=== PATIENT | male | born 1930 | race African-American/Black ===

== ENCOUNTER 2017-08-28 18:20 | Emergency (ER) | payer MEDICARE, OTHER ==
--- NOTE | 2017-08-28 18:26 | ER Document Report ---
ED General - General Stated Complaint: DIARRHEA Time Seen by Provider: 08/28/17 18:23 Notes: 87-year-old male with hypertension and dementia, possibly also A. fib although history is limited, presents with reports from the facility of diarrhea 3 times today, as well as diarrhea yesterday. Staff foul-smelling concern for C. difficile. Patient has no pain no vomiting and denies having diarrhea although he is demented and history is limited. - Related Data Allergies/Adverse Reactions: No Known Allergies Allergy (Verified 08/28/17 18:30) Past Medical History - Social History Smoking Status: Former Smoker Family History: Reviewed & Not Pertinent Review of Systems - Review of Systems Notes: PHYSICAL EXAMINATION General: No acute distress, well-nourished Head: Atraumatic, normocephalic ENT: Mouth normal, oropharynx moist, no exudates or tonsillar enlargement Eyes: Conjunctiva normal, pupils equal, lids normal Neck: No JVD, supple, no guarding CVS: Normal rate, regular rhythm, no murmurs Resp: No resp distress, equal and normal breath sounds bilaterally GI: Nondistended, soft, no tenderness to palpation, no rebound or guarding Ext: No deformities, no edema, normal range of motion in upper and lower ext Back: No CVA or midline TTP Skin: No rash, warm Lymphatic: No lymphadeopathy noted Neuro: Awake, alert. Face symmetric. GCS 15. -: Yes ROS unobtainable due to patient's medical condition Physical Exam - Vital signs Vitals: Temp Pulse Resp BP Pulse Ox 98.3 F 54 L 18 180/61 H 99 08/28/17 18:23 08/28/17 18:23 08/28/17 18:23 08/28/17 18:23 08/28/17 18:23 Course - Re-evaluation Re-evalutation: 08/28/17 18:26 87-year-old male with hypertension presents with astigmatic hypertension and reports of diarrhea. Abdominal exam is benign. Vital signs are normal. Will rule out C. difficile with a stool study although I do not believe he is dehydrated, or needs any other testing at this time. Doubt megacolon or other intra-abdominal complications of diarrhea. 08/28/17 20:10 This was not able to provide a stool sample in over 2 hours. He will be discharged back to his facility with instructions for outpatient C. difficile workup. I have discussed with the patient there likely diagnosis, aftercare plan, follow-up plans and my usual and customary return precautions. They verbalized understanding of this. - Vital Signs Vital signs: Temp Pulse Resp BP Pulse Ox 98.3 F 54 L 18 180/61 H 99 08/28/17 18:23 08/28/17 18:23 08/28/17 18:23 08/28/17 18:23 08/28/17 18:23 Discharge - Discharge Clinical Impression: Diarrhea Qualifiers: Diarrhea type: presumed infectious Qualified Code(s): A09 - Infectious gastroenteritis and colitis, unspecified Disposition: HOME, SELF-CARE Instructions: Diarrhea, Nonspecific ([facility]) Additional Instructions: Please obtain testing for Clostridium difficile as an outpatient. You were unable to provide a stool sample while in the ER.
[2017-08-29 02:56] VITALS: BP 159/47
== END 2017-08-29 03:15 | disposition home or self-care (01) ==
LOC: ER 18:20
DX: R19.7 Diarrhea, unspecified (principal); I10 Essential (primary) hypertension; F03.90 Unspecified dementia, unspecified severity, without behavioral disturbance, psychotic disturbance, mood disturbance, and anxiety; Z87.891 Personal history of nicotine dependence
CPT/HCPCS: 99285

== ENCOUNTER 2017-09-01 08:46 | Emergency (ER) | payer OTHER, MEDICARE ==
[2017-09-01 09:50] LABS: ABSOLUTE EOSINOPHILS # (AUTO) 0.1 10^3/uL (0.0-0.6); ABSOLUTE LYMPHOCYTES (AUTO) 0.7 10^3/uL (0.5-4.7); ABSOLUTE MONOCYTES (AUTO) 0.5 10^3/uL (0.1-1.4); ABSOLUTE NEUT (AUTO) 5.3 10^3/uL (1.7-8.2); BASOPHILS % (AUTO) 0.3 % (0-2); EOSINOPHILS % (AUTO) 1.1 % (0-6); HEMATOCRIT 42.7 % (37.9-51.0); HEMOGLOBIN 14.4 g/dL (13.5-17.0); LYMPHOCYTES % (AUTO) 10.6 % (13-45); MEAN CORPUSCULAR HEMOGLOBIN 32.1 pg (27.0-33.4); MEAN CORPUSCULAR HGB CONC 33.7 g/dL (32.0-36.0); MEAN CORPUSCULAR VOLUME 95 fl (80-97); MONOCYTES % (AUTO) 7.8 % (3-13); PLATELET COUNT 167 10^3/uL (150-450); RED BLOOD COUNT 4.48 10^6/uL (4.35-5.55); RED CELL DISTRIBUTION WIDTH 15.5 % (11.5-14.0); SEGMENTED NEUTROPHILS % (AUTO) 80.2 % (42-78); TOTAL CELLS COUNTED % (AUTO) 100 %; WHITE BLOOD COUNT 6.6 10^3/uL (4.0-10.5)
[2017-09-01 10:06] LABS: ALANINE AMINOTRANSFERASE 19 U/L (21-72); ALBUMIN 3.9 g/dL (3.5-5.0); ALKALINE PHOSPHATASE 127 U/L (38-126); ASPARTATE AMINO TRANSFERASE 19 U/L (17-59); BILIRUBIN,DIRECT 0.5 mg/dL (0.0-0.4); BILIRUBIN,TOTAL 0.5 mg/dL (0.2-1.3); BLOOD UREA NITROGEN 102 mg/dL (7-20); CALCIUM 9.8 mg/dL (8.4-10.2); CHLORIDE 103 mmol/L (98-107); GLUCOSE 109 mg/dL (75-110); MAGNESIUM 3.8 mg/dL (1.6-2.3); TOTAL PROTEIN 7.1 g/dL (6.3-8.2)
[2017-09-01 10:07] LABS: ALCOHOL < 10 mg/dL (NONE DETECTED)
[2017-09-01 10:14] LABS: CARBON DIOXIDE 18 mmol/L (22-30); SODIUM 143.2 mmol/L (137-145)
--- NOTE | 2017-09-01 10:18 | EKG REPORT ---
SEVERITY:- OTHERWISE NORMAL ECG - SINUS RHYTHM : Confirmed by: Narinder Kline 01-Sep-2017 10:18:19
[2017-09-01 10:22] LABS: ANION GAP 22 (5-19)
[2017-09-01 10:23] LABS: POTASSIUM 6.8 mmol/L (3.6-5.0)
[2017-09-01] MEDS ORDERED: ALBUTEROL SULFATE 0.083% NEB 2.5 MG/3 ML AMPUL NEB ONE (10:28)
[2017-09-01] MEDS ORDERED: NORMAL SALINE 1000 ML 1,000 ML IV ONE (10:28)
[2017-09-01] MEDS ORDERED: CALCIUM GLUCONATE 1000 MG/10 ML INJ IV ONE (10:29)
[2017-09-01] MEDS ORDERED: INSULIN REG, HUMAN 100 UNIT/ML 3 ML VIAL (PYX) IV ONE (10:29)
[2017-09-01] MEDS ORDERED: DEXTROSE 50%-WATER 25 GM/50 ML DISP.SYRIN IV ONE (10:29)
--- NOTE | 2017-09-01 10:32 | ER Document Report ---
ED General - General Chief Complaint: Probable Seizure Stated Complaint: ALTERED MENTAL STATUS Time Seen by Provider: 09/01/17 09:43 Mode of Arrival: Medic Information source: Patient, Outside Facility Records - [facility] Notes: 87-year-old with history of schizophrenia and dementia is decreased mental status since Friday he is a patient of [facility] and lives at [facility]. Today while they were showering him he had seizure-like activity and injured his right lateral proximal lower leg. No history of renal failure. History of BPH, prostate cancer (tx), anemia TRAVEL OUTSIDE OF THE [place] IN LAST 30 DAYS: No - Related Data Allergies/Adverse Reactions: No Known Allergies Allergy (Verified 08/28/17 18:30) Past Medical History - General Information source: Relative - sister eliana Cannot obtain history due to: Dementia - Social History Smoking Status: Unknown if Ever Smoked Frequency of alcohol use: None Drug Abuse: None Lives with: Retirement - [facility] Family History: Reviewed & Not Pertinent Patient has suicidal ideation: No Patient has homicidal ideation: No - Past Medical History Cardiac Medical History: Reports: Hx Atrial Fibrillation Renal/ Medical History: Denies: Hx Peritoneal Dialysis Malignancy Medical History: Reports Hx Prostate Cancer Psychiatric Medical History: Reports: Hx Bipolar Disorder, Hx Schizophrenia Surgical Hx: Negative Review of Systems - Review of Systems Constitutional: No symptoms reported EENT: No symptoms reported Cardiovascular: No symptoms reported Respiratory: No symptoms reported Gastrointestinal: No symptoms reported Genitourinary: No symptoms reported Male Genitourinary: No symptoms reported Musculoskeletal: No symptoms reported Skin: No symptoms reported Hematologic/Lymphatic: No symptoms reported Neurological/Psychological: See HPI Physical Exam - Vital signs Vitals: Temp Pulse Resp BP Pulse Ox 98.4 F 62 14 167/117 H 100 09/01/17 08:46 09/01/17 08:46 09/01/17 08:46 09/01/17 08:46 09/01/17 08:46 Interpretation: Hypertensive - General General appearance: Appears well, Alert - HEENT Head: Normocephalic, Atraumatic Eyes: Normal Conjunctiva: Normal Pupils: PERRL Neck: Supple - Respiratory Respiratory status: No respiratory distress Chest status: Nontender Breath sounds: Normal Chest palpation: Normal - Cardiovascular Rhythm: Regular Heart sounds: Normal auscultation Murmur: No - Abdominal Inspection: Normal Distension: No distension Bowel sounds: Normal Tenderness: Nontender. No: Tender Organomegaly: No organomegaly. No: Hepatomegaly, Splenomegaly - Genitourinary Notes: diaper on, no rash, uncircumscised - Back Back: Normal, Nontender. No: CVA tenderness - Extremities General upper extremity: Normal inspection, Nontender, Normal color, Normal ROM , Normal temperature General lower extremity: Normal inspection, Nontender, Normal color, Normal ROM , Normal temperature, Normal weight bearing. No: Flaco's sign - Neurological Neuro grossly intact: Yes Cognition: Normal Orientation: AAOx4 Dianelys Coma Scale Eye Opening: Spontaneous [place] Coma Scale Verbal: Oriented [place] Coma Scale Motor: Obeys Commands Dianelys Coma Scale Total: 15 Speech: Normal Motor strength normal: LUE, RUE, LLE, RLE Sensory: Normal - Psychological Associated symptoms: Normal affect, Normal mood - Skin Skin Temperature: Warm Skin Moisture: Dry Skin Color: Normal Skin irregularity: negative: Rash Course - Re-evaluation Re-evalutation: 09/01/17 10:39 spoke with sister Eliana who lives in [place] and he does not have hx of renal failure. home # [phone] , cell # [phone], a full code for now , some papers signed while at [facility] previous admissions. 09/01/17 10:45 spoke with who says pt needs to be transferred for possible dialysis 09/01/17 11:37 [facility] will admit for Dr. Wilkins the hospitalist, dr. jiménez 09/01/17 11:47 dr. jiménez called back and rec. renal US to look for obstruction which i have ordered 09/01/17 12:03 Dr. Jiménez called back and said to cancel the renal ultrasound since we do not have urology structural ironworker pending room assignment. 09/01/17 13:16 transport here for the pt to take to [facility]. remains stable. no urine output after 1 liter NS, dr razo signed and has been sharepoint consultant for this pt. - Vital Signs Vital signs: Temp Pulse Resp BP Pulse Ox 98.0 F 62 15 151/87 H 100 09/01/17 13:03 09/01/17 08:46 09/01/17 13:03 09/01/17 13:03 09/01/17 13:03 - Laboratory Result Diagrams: 09/01/17 09:06 09/01/17 09:06 Laboratory results interpreted by me: 09/01/17 09/01/17 09/01/17 09:06 09:06 11:11 RDW 15.5 H Seg Neutrophils % 80.2 H Lymphocytes % 10.6 L Potassium 6.8 H* Carbon Dioxide 18 L Anion Gap 22 H BUN 102 H Creatinine 26.68 H Est GFR ( Amer) 2 L Est GFR (Non-Af Amer) 2 L POC Glucose 225 H Magnesium 3.8 H Direct Bilirubin 0.5 H ALT 19 L Alkaline Phosphatase 127 H
--- NOTE | 2017-09-01 10:42 | RADIOLOGY REPORT (SQ) ---
EXAM DESCRIPTION: KNEE RIGHT 4 VIEWS COMPLETED DATE/TIME: 09/01/2017 10:31 am REASON FOR STUDY: injury in shower COMPARISON: None. NUMBER OF VIEWS: Four views. TECHNIQUE: AP, lateral, and both oblique radiographic images acquired of the right knee. LIMITATIONS: None. FINDINGS: MINERALIZATION: Normal. BONES: No acute fracture or dislocation. No worrisome bone lesions. JOINT: No effusion. SOFT TISSUES: No soft tissue swelling. No radio-opaque foreign body. OTHER: No other significant finding. IMPRESSION: NEGATIVE STUDY OF THE RIGHT KNEE. NO RADIOGRAPHIC EVIDENCE OF ACUTE INJURY. TECHNICAL DOCUMENTATION: JOB ID: [id number] [employer]- All Rights Reserved
--- NOTE | 2017-09-01 11:35 | RADIOLOGY REPORT (SQ) ---
EXAM DESCRIPTION: CHEST SINGLE VIEW COMPLETED DATE/TIME: 09/01/2017 11:28 am REASON FOR STUDY: acute renal failure COMPARISON: None. EXAM PARAMETERS: NUMBER OF VIEWS: One view. TECHNIQUE: Single frontal radiographic view of the chest acquired. RADIATION DOSE: NA LIMITATIONS: None. FINDINGS: LUNGS AND PLEURA: No opacities, masses or pneumothorax. No pleural effusion. MEDIASTINUM AND HILAR STRUCTURES: No masses. Contour normal. HEART AND VASCULAR STRUCTURES: Cardiomegaly. No evidence of congestive heart failure. BONES: No acute findings. HARDWARE: None in the chest. OTHER: No other significant finding. IMPRESSION: NO ACUTE RADIOGRAPHIC FINDING IN THE CHEST. TECHNICAL DOCUMENTATION: JOB ID: [id number] [employer]- All Rights Reserved
[2017-09-01 13:06] VITALS: BP 151/87
== END 2017-09-01 13:22 | disposition short-term general hospital (02) ==
LOC: ER 08:46
DX: N19 Unspecified kidney failure (principal); F03.90 Unspecified dementia, unspecified severity, without behavioral disturbance, psychotic disturbance, mood disturbance, and anxiety; S89.91XA Unspecified injury of right lower leg, initial encounter; X58.XXXA Exposure to other specified factors, initial encounter; Z85.46 Personal history of malignant neoplasm of prostate
CPT/HCPCS: 93005; 94640; 99285; 96361; 51702; 96375; 96365; 36415; 82962; 80307; 83735; 85025; 80053; 71010; 73564; 93010; J0610; J3490; J1815; J7030